=== PATIENT | female | born 2000 | race African-American/Black ===

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

== ENCOUNTER 2019-09-18 07:25 | Emergency (ER) | payer OTHER ==
[2019-09-18 07:35] VITALS: TEMP 98.1
[2019-09-18] MEDS ORDERED: AZITHROMYCIN 500 MG TAB PO STA (08:07)
[2019-09-18] MEDS ORDERED: cefTRIAXone 250 MG VIAL IM STA (08:07)
[2019-09-18 09:08] LABS: Appearance,Urine Clear (Clear); Bilirubin,Urine Negative (Negative); Blood,Urine Large (Negative); Color,Urine Yellow; Glucose,Urine (UA) Negative (Negative); Ketones,Urine Negative (Negative); Leukocyte Esterase,Urine Small (Negative); Mucus,Urine Rare /hpf; Nitrite,Urine Negative (Negative); PH, Urine 5.5 (5.0-8.0); Protein,Urine Negative (Negative); RBC,Urine >182 /hpf (0-5); Specific Gravity,Urine 1.012 (1.001-1.035); Squamous Epithelial Cell,Urine 2 /hpf (0-4); Urobilinogen,Urine <2.0 mg/dL (<2.0); WBC,Urine 17 /hpf (0-5)
--- NOTE | 2019-09-18 09:46 | ED ---
Female Urogenital HPI - General Chief complaint: Urogenital Stated complaint: STD check Time Seen by Provider: 09/18/19 07:35 Source: patient Mode of arrival: ambulatory Limitations: no limitations - History of Present Illness Initial comments: The patient is a 19-year-old female with no past history who presents to the emergency department with concern for sexually transmitted infection. She states that her boyfriend was just informed by his ex-girlfriend that she tested positive for chlamydia. Patient is presenting for treatment. She denies any symptoms. Denies any abnormal vaginal discharge. Does admit to vaginal bleeding as she is on her menstrual cycle. States that this is normal time for her menstrual cycle. No concern for disease. Denies dysuria, hematuria or difficulty voiding. Does admit to frequent urinary tract infections. Denies diarrhea, constipation, melanotic stools or hematochezia. No fevers or chills. Denies nausea or vomiting. There are no alleviating, precipitating or modifying factors Last Menstrual Period: 09/18/19 - Related Data Home Medications Medication Instructions Recorded Confirmed Czd-[id number]-Tqnjb Acid 1 cap PO DAILY 07/25/18 07/25/18 [-U Capsule (formulary)] Allergies Allergy/AdvReac Type Severity Reaction Status Date / Time No Known Allergies Allergy Verified 09/18/19 07:33 Review of Systems ROS Statement: Those systems with pertinent positive or pertinent negative responses have been documented in the HPI. ROS Other: All systems not noted in ROS Statement are negative. Past Medical History Past Medical History: No Reported History Additional Past Medical History / Comment(s): urinary tract infections History of Any Multi-Drug Resistant Organisms: None Reported Past Surgical History: No Surgical Hx Reported Past Anesthesia/Blood Transfusion Reactions: No Reported Reaction Past Psychological History: No Psychological Hx Reported Smoking Status: Current every day smoker Past Alcohol Use History: None Reported Past Drug Use History: Marijuana - Past Family History Mother History Unknown: Yes Family Medical History: Cancer, Hypertension Additional Family Medical History / Comment(s): cervical cancer Father Family Medical History: Hypertension General Exam Limitations: no limitations General appearance: alert, in no apparent distress Head exam: Present: atraumatic, normocephalic, normal inspection Eye exam: Present: normal appearance. Absent: scleral icterus, conjunctival injection, periorbital swelling ENT exam: Present: normal exam, mucous membranes moist Neck exam: Present: normal inspection. Absent: tenderness, meningismus, ly mphadenopathy Respiratory exam: Present: normal lung sounds bilaterally. Absent: respiratory distress, wheezes, rales, rhonchi, stridor Cardiovascular Exam: Present: regular rate, normal rhythm, normal heart sounds. Absent: systolic murmur, diastolic murmur, rubs, gallop, clicks GI/Abdominal exam: Present: soft, normal bowel sounds. Absent: distended, tenderness, guarding, rebound, rigid Extremities exam: Present: normal inspection, full ROM, normal capillary refill. Absent: tenderness, pedal edema, joint swelling, calf tenderness Back exam: Present: normal inspection Neurological exam: Present: alert, oriented X3, CN II-XII intact Psychiatric exam: Present: normal affect, normal mood Skin exam: Present: warm, dry, intact, normal color. Absent: rash Course Vital Signs 09/18/19 09/18/19 07:30 09:53 Temperature 98.1 F Pulse Rate 62 70 Respiratory 20 16 Rate Blood Pressure 135/92 120/74 O2 Sat by Pulse 100 99 Oximetry Medical Decision Making - Medical Decision Making Upon arrival patient was placed into room 20. A thorough history and physical exam was performed. UA was performed which demonstrates large blood, small leukocyte Estrace, greater than 182 red blood cells, 17 white blood cells. HCG is not detected. I did offer a pelvic exam but the patient is just requesting treatment. She is given a gram of azithromycin and 250 mg IM of Rocephin. I informed patient that she should follow up with the health clinic for further testing such transmitted infections such as HIV and hepatitis. Urine will be sent for culture. Return to the emergency room for any new or worsening symptoms. The patient was discharged home in stable condition - Lab Data Lab Results 09/18/19 09/18/19 Range/Units 08:00 08:00 Urine Color Yellow Urine Appearance Clear (Clear) Urine pH 5.5 (5.0-8.0) Ur Specific [place] 1.012 (1.001-1.035) Urine Protein Negative (Negative) Urine Glucose (UA) Negative (Negative) Urine Ketones Negative (Negative) Urine Blood Large H (Negative) Urine Nitrite Negative (Negative) Urine Bilirubin Negative (Negative) Urine Urobilinogen <2.0 (<2.0) mg/dL Ur Leukocyte Esterase Small H (Negative) Urine RBC >182 H (0-5) /hpf Urine WBC 17 H (0-5) /hpf Ur Squamous Epith Cells 2 (0-4) /hpf Urine Mucus Rare H (None) /hpf Urine HCG, Qual Not Detected (Not Detectd) Disposition Clinical Impression: Unprotected sex, Abnormal urinalysis Disposition: HOME SELF-CARE Condition: Stable Instructions (If sedation given, give patient instructions): Safe Sex (ED) Additional Instructions: Please follow-up with your primary care doctor in 2-4 days. You should go to the health clinic and get tested for HIV and hepatitis. Return to the emergency department for any new or worsening symptoms Is patient prescribed a controlled substance at d/c from ED?: No Referrals: None,Stated [Primary Care Provider] - 1-2 days Yuli Avery MD [STAFF PHYSICIAN] - 1-2 days Time of Disposition: 09:45
[2019-09-18 09:54] VITALS: BP 120/74; PULSE 70; RESP 16
== END 2019-09-18 09:53 | disposition home or self-care (01) ==
LOC: EC 07:25
DX: R82.90 Unspecified abnormal findings in urine (principal); F17.200 Nicotine dependence, unspecified, uncomplicated
CPT/HCPCS: 81001; 81025; 87086; 99283; 96372; J0696

== ENCOUNTER 2022-05-13 15:29 | Emergency (ER) | payer OTHER ==
[2022-05-13] MEDS ORDERED: SODIUM CHLORIDE 0.9% 1,000 ML IV STA (16:20)
--- NOTE | 2022-05-13 16:26 | ED ---
General Adult HPI - General Chief complaint: Vaginal Bleeding Stated complaint: Vaginal bleeding-14 weeks preg Time Seen by Provider: 05/13/22 16:04 Source: patient, RN notes reviewed Mode of arrival: wheelchair Limitations: no limitations - History of Present Illness Initial comments: 21-year-old female, , presents to the emergency Department with complaints of vaginal bleeding, onset less than one hour prior to arrival. Patient states she is 13 weeks as confirmed by ultrasound. First day of LMP unknown. Reports OB care at [facility] in [place]. States she was hospitalized last week for hypokalemia secondary to hyperemesis gravidarum. States she has been prescribed vitamin B6 and Zofran and has been tolerating her potassium supp lement without difficulty. Does complain of abdominal cramping discomfort, however declines anything for pain at this time. Reports nausea is minimal. Does report history of previous miscarriage and states this is similar in presentation. Denies fever, chills, headache, chest pain, shortness of breath, dysuria, hematuria, abdominal trauma, falls, or injury. - Related Data Home Medications Medication Instructions Recorded Confirmed Ycw-Tkth-[id number] Acid 1 cap PO DAILY 07/25/18 07/25/18 [-U Capsule (formulary)] Allergies Allergy/AdvReac Type Severity Reaction Status Date / Time No Known Allergies Allergy Verified 05/13/22 15:34 Review of Systems ROS Statement: Those systems with pertinent positive or pertinent negative responses have been documented in the HPI. ROS Other: All systems not noted in ROS Statement are negative. Past Medical History Past Medical History: No Reported History Additional Past Medical History / Comment(s): urinary tract infections History of Any Multi-Drug Resistant Organisms: None Reported Past Surgical History: No Surgical Hx Reported Past Anesthesia/Blood Transfusion Reactions: No Reported Reaction Past Psychological History: No Psychological Hx Reported Past Alcohol Use History: None Reported Past Drug Use History: Marijuana - Past Family History Mother History Unknown: Yes Family Medical History: Cancer, Hypertension Additional Family Medical History / Comment(s): cervical cancer Father Family Medical History: Hypertension General Exam Limitations: no limitations General appearance: alert, in no apparent distress, anxious, other (Well- developed, well-nourished female in no acute distress. Initial temperature 98.1, pulse 59, respirations 16, blood pressure 135/94, pulse ox 94% on room air.) ENT exam: Present: normal exam, normal oropharynx, mucous membranes moist Neck exam: Present: normal inspection, full ROM. Absent: tenderness, meningismus, lymphadenopathy Respiratory exam: Present: normal lung sounds bilaterally. Absent: respiratory distress, wheezes, rales, rhonchi, stridor, chest wall tenderness Cardiovascular Exam: Present: regular rate, normal rhythm, normal heart sounds. Absent: systolic murmur, diastolic murmur, rubs, gallop, clicks GI/Abdominal exam: Present: soft, normal bowel sounds. Absent: distended, tende rness, guarding, rebound, rigid Speculum exam: Present: vaginal bleeding (moderate amount of thin, dark red bleeding; no clots or tissue present; Os appears closed) Back exam: Absent: CVA tenderness (R), CVA tenderness (L) Neurological exam: Present: alert, oriented X3, CN II-XII intact, normal gait Psychiatric exam: Present: anxious Skin exam: Present: warm, dry, intact, normal color. Absent: rash Course Vital Signs 05/13/22 05/13/22 05/13/22 15:31 16:56 18:00 Temperature 98.1 F Pulse Rate 59 L 79 78 Respiratory 16 20 18 Rate Blood Pressure 135/94 115/80 109/77 O2 Sat by Pulse 94 L 99 99 Oximetry 05/13/22 19:20 Temperature 98.2 F Pulse Rate 75 Respiratory 20 Rate Blood Pressure 114/79 O2 Sat by Pulse 100 Oximetry - Reevaluation(s) Reevaluation #1: 05/13/22 16:29 Patient is now asking for pain medication as her cramping is worsening and is feeling back and pelvic discomfort. IV access obtained at this time. Pain medication and IV fluids will be ordered. Does report that she was recently treated for UTI and was told to DC the antibiotic as recheck showed sufficient clearing of infection. 05/13/22 19:00 Results reviewed with patient. She verbalizes understanding. Given RX for repeat bhCG and verbalizes understanding of instructions. Medical Decision Making - Medical Decision Making This is a 21-year-old female, , 11 weeks 5 days as confirmed by u ltrasound, who presents to the emergency department for evaluation of vaginal bleeding. Recent history of hypokalemia secondary to hyperemesis gravidarum. Upon exam, patient is well-appearing and in no acute distress. Physical exam findings are unremarkable with the exception of moderate amount of dark red vaginal bleeding. Laboratory studies were obtained. Na 134, K+3.4, bhCG 67,888. B-positive blood type therefore Rhogam not required. Ultrasound was obtained showing a viable single intrauterine fetus and subchorionic bleed. Patient was given a liter of IV fluids, morphine for cramping discomfort, Zofran for mild nausea, and oral potassium which she tolerated well. Patient reports f eeling improved. She will be discharged home with a prescription to repeat her beta hCG level in 48 hours. Instructed to call her FULFILLMENT COORDINATOR on Sunday to schedule follow-up appointment. Strict return parameters were discussed in detail. Patient verbalizes understanding and agrees with this plan. Attending: Wan. - Lab Data Result diagrams: 05/13/22 16:34 05/13/22 16:34 Lab Results 05/13/22 05/13/22 05/13/22 Range/Units 16:34 16:34 16:34 WBC 6.8 (3.8-10.6) k/uL RBC 4.38 (3.80-5.40) m/uL Hgb 13.3 (11.4-16.0) gm/dL Hct 38.1 (34.0-46.0) % MCV 86.9 (80.0-100.0) fL MCH 30.3 (25.0-35.0) pg MCHC 34.9 (31.0-37.0) g/dL RDW 13.4 (11.5-15.5) % Plt Count 206 (150-450) k/uL MPV 9.2 Neutrophils % 69 % Lymphocytes % 23 % Monocytes % 5 % Eosinophils % 1 % Basophils % 0 % Neutrophils # 4.7 (1.3-7.7) k/uL Lymphocytes # 1.6 (1.0-4.8) k/uL Monocytes # 0.4 (0-1.0) k/uL Eosinophils # 0.1 (0-0.7) k/uL Basophils # 0.0 (0-0.2) k/uL PT 11.5 (9.0-12.0) sec INR 1.1 (<1.2) Sodium 134 L (137-145) mmol/L Potassium 3.4 L (3.5-5.1) mmol/L Chloride 101 (98-107) mmol/L Carbon Dioxide 21 L (22-30) mmol/L Anion Gap 12 mmol/L BUN 9 (7-17) mg/dL Creatinine 0.57 (0.52-1.04) mg/dL Est GFR (CKD-EPI)AfAm >90 (>60 ml/min/1.73 sqM) Est GFR (CKD-EPI)NonAf >90 (>60 ml/min/1.73 sqM) Glucose 100 H (74-99) mg/dL Calcium 9.6 (8.4-10.2) mg/dL Total Bilirubin 0.4 (0.2-1.3) mg/dL AST 20 (14-36) U/L ALT 11 (4-34) U/L Alkaline Phosphatase 40 (38-126) U/L Total Protein 7.4 (6.3-8.2) g/dL Albumin 4.5 (3.5-5.0) g/dL HCG, Quant mIU/mL Urine Color Urine Appearance (Clear) Urine pH (5.0-8.0) Ur Specific [place] (1.001-1.035) Urine Protein (Negative) Urine Glucose (UA) (Negative) Urine Ketones (Negative) Urine Blood (Negative) Urine Nitrite (Negative) Urine Bilirubin (Negative) Urine Urobilinogen (<2.0) mg/dL Ur Leukocyte Esterase (Negative) Urine RBC (0-5) /hpf Ur Squamous Epith Cells (0-4) /hpf Urine Mucus (None) /hpf Blood Type Blood Type Recheck Bld Type Recheck Status 05/13/22 05/13/22 05/13/22 Range/Units 16:34 16:34 17:48 WBC (3.8-10.6) k/uL RBC (3.80-5.40) m/uL Hgb (11.4-16.0) gm/dL Hct (34.0-46.0) % MCV (80.0-100.0) fL MCH (25.0-35.0) pg MCHC (31.0-37.0) g/dL RDW (11.5-15.5) % Plt Count (150-450) k/uL MPV Neutrophils % % Lymphocytes % % Monocytes % % Eosinophils % % Basophils % % Neutrophils # (1.3-7.7) k/uL Lymphocytes # (1.0-4.8) k/uL Monocytes # (0-1.0) k/uL Eosinophils # (0-0.7) k/uL Basophils # (0-0.2) k/uL PT (9.0-12.0) sec INR (<1.2) Sodium (137-145) mmol/L Potassium (3.5-5.1) mmol/L Chloride (98-107) mmol/L Carbon Dioxide (22-30) mmol/L Anion Gap mmol/L BUN (7-17) mg/dL Creatinine (0.52-1.04) mg/dL Est GFR (CKD-EPI)AfAm (>60 ml/min/1.73 sqM) Est GFR (CKD-EPI)NonAf (>60 ml/min/1.73 sqM) Glucose (74-99) mg/dL Calcium (8.4-10.2) mg/dL Total Bilirubin (0.2-1.3) mg/dL AST (14-36) U/L ALT (4-34) U/L Alkaline Phosphatase (38-126) U/L Total Protein (6.3-8.2) g/dL Albumin (3.5-5.0) g/dL HCG, Quant 13028.8 mIU/mL Urine Color Red Urine Appearance Clear (Clear) Urine pH 6.0 (5.0-8.0) Ur Specific [place] 1.027 (1.001-1.035) Urine Protein 2+ H (Negative) Urine Glucose (UA) Negative (Negative) Urine Ketones Trace H (Negative) Urine Blood Large H (Negative) Urine Nitrite Negative (Negative) Urine Bilirubin Negative (Negative) Urine Urobilinogen <2.0 (<2.0) mg/dL Ur Leukocyte Esterase Small H (Negative) Urine RBC >182 H (0-5) /hpf Ur Squamous Epith Cells 2 (0-4) /hpf Urine Mucus Few H (None) /hpf Blood Type B Positive Blood Type Recheck B Pos Bld Type Recheck Status No - Radiology Data Radiology results: report reviewed, image reviewed OB ultrasound was obtained. Report was reviewed in its entirety. Impression per Dr. Lopez is #1. Single viable intrauterine . #2. Subchorionic bleed inferior to the gestational sac. 5.6 x 3.9 x 5.3 cm in size. Disposition Clinical Impression: Threatened in first trimester, Hypokalemia Disposition: HOME SELF-CARE Condition: Stable Instructions (If sedation given, give patient instructions): Threatened Miscarriage (ED), Hypokalemia (ED) Additional Instructions: Given the presence of vaginal bleeding, you should avoid vigorous or strenuous activity. No sexual intercourse. May take Tylenol if needed for cramping discomfort. Hydration is important; drink water and consider an electrolyte solution such as Pedialyte or Gatorade. Have repeat blood work (bHCG) done in 48 hours. Call your OB on Sunday to schedule a follow-up appointment. Return to the emergency department with any new, worsening, or concerning symptoms. Is patient prescribed a controlled substance at d/c from ED?: No Referrals: None,Stated [Primary Care Provider] - 1-2 days Time of Disposition: 19:11
[2022-05-13] MEDS ORDERED: ONDANSETRON 4 MG/2 ML VIAL IVP STA (16:39)
[2022-05-13] MEDS ORDERED: MORPHINE SULFATE 2 MG/ML SYRINGE IVP ONE (16:39)
[2022-05-13 16:46] LABS: INR 1.1 (<1.2); Prothrombin Time 11.5 sec (9.0-12.0)
[2022-05-13 16:48] LABS: ALT 11 U/L (4-34); AST 20 U/L (14-36); African American GFR (CKD) >90 (>60 ml/min/1.73 sqM); Albumin 4.5 g/dL (3.5-5.0); Alkaline Phosphatase 40 U/L (38-126); Anion Gap 12 mmol/L; Blood Urea Nitrogen 9 mg/dL (7-17); Calcium 9.6 mg/dL (8.4-10.2); Carbon Dioxide 21 mmol/L (22-30); Chloride 101 mmol/L (98-107); Glucose 100 mg/dL (74-99); Non-African American GFR(CKD) >90 (>60 ml/min/1.73 sqM); Potassium 3.4 mmol/L (3.5-5.1); Sodium 134 mmol/L (137-145); Total Bilirubin 0.4 mg/dL (0.2-1.3); Total Protein 7.4 g/dL (6.3-8.2)
[2022-05-13 17:16] LABS: Basophils % (A) 0 %; Eosinophils # (A) 0.1 k/uL (0-0.7); Eosinophils % (A) 1 %; HCT 38.1 % (34.0-46.0); HGB 13.3 gm/dL (11.4-16.0); Lymphocytes # (A) 1.6 k/uL (1.0-4.8); Lymphocytes % (A) 23 %; MCH 30.3 pg (25.0-35.0); MCHC 34.9 g/dL (31.0-37.0); MCV 86.9 fL (80.0-100.0); Mean Platelet Volume 9.2; Monocytes # (A) 0.4 k/uL (0-1.0); Monocytes % (A) 5 %; Neutrophils # (A) 4.7 k/uL (1.3-7.7); Neutrophils % (A) 69 %; Platelet Count 206 k/uL (150-450); RBC 4.38 m/uL (3.80-5.40); RDW 13.4 % (11.5-15.5); WBC 6.8 k/uL (3.8-10.6)
[2022-05-13] MEDS ORDERED: POTASSIUM CHLORIDE ER 20 MEQ TAB.ER PO STA (17:36)
--- NOTE | 2022-05-13 18:04 | US ---
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 EXAM PERFORMED: Transabdominal (TA) EXAM MEASUREMENTS: GESTATIONAL AGE / DATING Physician Established: Not yet established Dates by LMP: LMP unknown Dates by First Scan: No previous this is first scan Dates by Current Scan for: (11 weeks/5 days) EDC: 11/27/2022 MATERNAL ANATOMY Uterus: 12.0 x 8.0 x 8.4cm Right Ovary: 3.4 x 2.1 x 2.7cm Left Ovary: not seen Post CDS / Adnexa: wnl Presence of free fluid: no Presence of corpus luteal cyst: right ovary: 2.4 x 1.5 x 2.2cm Presence of subchorionic bleed: 5.6 x 3.9 x 5.3cm - inferior to gestational sac GESTATION / SURVEY CRL: 4.9cm (11 weeks/5 days) Yolk Sac (normal less than 6mm): 4.8mm Heart Rate: 156 bpm Rhythm: Normal IUP: Viable IUP Date of LMP: Unknown Beta HcG (if available): Not available at time of exam IMPRESSION: 1. Single viable intrauterine . 2. Subchorionic bleed inferior to the gestational sac. 5.6 x 3.9 x 5.3 cm in size.
[2022-05-13 18:07] LABS: Appearance,Urine Clear (Clear); Bilirubin,Urine Negative (Negative); Blood,Urine Large (Negative); Color,Urine Red; Glucose,Urine (UA) Negative (Negative); Ketones,Urine Trace (Negative); Leukocyte Esterase,Urine Small (Negative); Mucus,Urine Few /hpf; Nitrite,Urine Negative (Negative); Protein,Urine 2+ (Negative); RBC,Urine >182 /hpf (0-5); Specific Gravity,Urine 1.027 (1.001-1.035); Squamous Epithelial Cell,Urine 2 /hpf (0-4); Urobilinogen,Urine <2.0 mg/dL (<2.0)
[2022-05-13 19:21] VITALS: BP 114/79; PULSE 75; RESP 20; TEMP 98.2
== END 2022-05-13 19:31 | disposition home or self-care (01) ==
LOC: EC 15:29
DX: O20.0 Threatened abortion (principal); O99.281 Endocrine, nutritional and metabolic diseases complicating pregnancy, first trimester; E87.6 Hypokalemia; Z79.899 Other long term (current) drug therapy
CPT/HCPCS: 36415; 86900; 86901; 80053; 85025; 85610; 81001; 84702; 76801; 99284; 96374; 96375; 96361; J2405; J2270

== ENCOUNTER 2022-08-15 16:50 | Outpatient (CLI) | payer OTHER ==
[2022-08-15] MEDS ORDERED: LACTATED RINGERS 1,000 ML IV SCH (17:45)
[2022-08-15 18:06] LABS: Amorphous Sediment,Urine Occasional /hpf; Appearance,Urine Cloudy (Clear); Bacteria,Urine Occasional /hpf; Bilirubin,Urine Negative (Negative); Blood,Urine Negative (Negative); Color,Urine Light Yellow; Glucose,Urine (UA) Negative (Negative); Ketones,Urine Negative (Negative); Leukocyte Esterase,Urine Small (Negative); Mucus,Urine Occasional /hpf; Nitrite,Urine Negative (Negative); PH, Urine 7.5 (5.0-8.0); Protein,Urine Negative (Negative); RBC,Urine <1 /hpf (0-5); Specific Gravity,Urine 1.013 (1.001-1.035); Squamous Epithelial Cell,Urine 5 /hpf (0-4); Urobilinogen,Urine <2.0 mg/dL (<2.0); WBC,Urine 2 /hpf (0-5)
[2022-08-15 18:13] VITALS: BP 113/59; TEMP 97.4
[2022-08-15 18:14] LABS: Amphetamine Screen,Urine Not Detected (NotDetected); Barbiturate Screen,Urine Not Detected (NotDetected); Benzodiazepines Screen,Urine Not Detected (NotDetected); Cocaine Screen,Urine Not Detected (NotDetected); Methadone Screen, Urine Not Detected (NotDetected); Opiate Screen,Urine Not Detected (NotDetected); Oxycodone Screen, Urine Not Detected (NotDetected); Phencyclidine Screen,Urine Not Detected (NotDetected); Tricyclic Antidepressant,Urine Not Detected (NotDetected); Urn Cannabinoid Scrn Detected (NotDetected)
[2022-08-15] MEDS ORDERED: ACETAMINOPHEN TAB 500 MG TAB PO STA (18:18)
[2022-08-15 18:23] LABS: Basophils % (A) 0 %; Eosinophils # (A) 0.1 k/uL (0-0.7); Eosinophils % (A) 1 %; HCT 34.8 % (34.0-46.0); HGB 11.5 gm/dL (11.4-16.0); Lymphocytes # (A) 1.9 k/uL (1.0-4.8); Lymphocytes % (A) 17 %; MCH 29.6 pg (25.0-35.0); MCHC 33.1 g/dL (31.0-37.0); MCV 89.4 fL (80.0-100.0); Monocytes # (A) 0.9 k/uL (0-1.0); Monocytes % (A) 7 %; Neutrophils # (A) 8.5 k/uL (1.3-7.7); Neutrophils % (A) 73 %; Platelet Count 192 k/uL (150-450); RDW 13.1 % (11.5-15.5); WBC 11.6 k/uL (3.8-10.6)
[2022-08-15 18:31] LABS: ALT 12 U/L (4-34); AST 20 U/L (14-36); African American GFR (CKD) >90 (>60 ml/min/1.73 sqM); Blood Urea Nitrogen 6 mg/dL (7-17); LDH 402 U/L (313-618); Non-African American GFR(CKD) >90 (>60 ml/min/1.73 sqM); Uric Acid 3.6 mg/dL (3.7-7.4)
[2022-08-15 18:38] LABS: Creatinine,Urine Random 71.4 mg/dL; Protein/Creatinine Ratio,Urine 0.098
--- NOTE | 2022-08-15 18:43 | US ---
EXAMINATION TYPE: US OB limited DATE OF EXAM: 08/15/2022 COMPARISON: NONE CLINICAL HISTORY: Placenta. abdominal pain today EXAM PERFORMED: Transabdominal (TA) GESTATIONAL AGE / DATING Physician Established: (25 weeks/4 days) EDC: 11/24/22 Dates by Current Scan: (25 weeks/3 days) EDC: 11/25/22 SURVEY PLACENTA: Fundal PREVIA: No Previa Ultrasound evidence of abruption? No [place]: 16.1 cm Normal Ultrasound evidence of premature rupture of membranes? No CERVICAL LENGTH (transabdominal: norm > 3.0cm): 3.7 cm (Supplemental transvaginal imaging performed to verify cervical length.) Ultrasound evidence of cervical incompetence? No (Tech?if abnormal transabdominally?image transvaginally to substantiate abnormality.) PRESENTATION: Vertex LIE: Longitudinal HEART RATE: 154 bpm RHYTHM: Normal IMPRESSION: Amniotic fluid is normal. Placenta appears normal. No evidence of placenta previa or plac enta abruption. Cervix is closed. No complicating process seen. Biparietal diameter is 6.5 cm equal to 26 weeks and 2 days. The abdominal circumference is 21.4 cm eq ual to 25 weeks and 6 days.
[2022-08-15 19:14] VITALS: PULSE 109; RESP 16
[2022-08-15 19:29] LABS: INR 0.9 (<1.2); Partial Thromboplastin Time 25.2 sec (22.0-30.0); Prothrombin Time 9.4 sec (9.0-12.0)
--- NOTE | 2022-08-18 08:43 | P.MSEPDOC ---
Presenting Problems - Arrival Data Date of Arrival on Unit: 08/15/22 Time of Arrival on Unit: 16:50 Mode of Transport: Wheelchair - Complaint OB-Reason for Admission/Chief Complaint: Possible Onset of Labor Comment: pt to triage crying and pushing, cervix checked and found to be 1cm dilated and not srini Medical History - Information : 5 Para: 3 Term: 1 : 2 Abortions: Spontaneous or Elective: 1 Number of Living Children: 3 - Gestational Age Gestational Age by WYATT (wks/days): 25 Weeks and 4 Days - History Complications: Hx. Substance Abuse, Other Comment: "placenta detached" per pt, now resolved. +THC Review of Systems - Review of Systems Constitutional: No problems Breast: No problems ENT: No problems Cardiovascular: No problems Respiratory: No problems Gastrointestinal: No problems Genitourinary: No problems Musculoskeletal: No problems Neurological: No problems Skin: No problems Vital Signs - Temperature Temperature: 97.4 F Temperature Source: Temporal Artery Scan - Pulse Right Supine Brachial Pulse Rate: 109 Pulse Assessment Method: Automatic Cuff - Respirations Respiratory Rate: 16 Oxygen Delivery Method: Room Air - Blood Pressure Right Arm Supine Blood Pressure: 113/59 Blood Pressure Mean: 77 Blood Pressure Source: Automatic Cuff Medical Screen Scoring - Cervical Exam Dilation (cm): 1 Membranes: Intact - Assessment - Baby A Heart Rate - NICHD Category: Category I (Normal) Physician Notification - Physician Notified Physician Notified Date: 08/15/22 Physician Notified Time: 18:50 Physician: Karolina Hardy Order Received: Yes (d/c home) - Notification Comment Comment: preeclamptic labs, IV, Ultrasound, UA UDS and call with results Maternal Triage Index - Maternal Triage Index Presenting for scheduled procedure w/no complaint: No - Stat/Priority 1 Stat Priority 1: Yes Provider Notified: Silvia De La Torre Provider Notified Time: 16:50 Criteria Met for Priority 1: Active bearing down efforts - Prompt/Priority 3 Prompt Priority 3: Yes Criteria Met for Priority 3: 25 2/7, to triage crying and pushing, pt fould to be 1cm and not srini Disposition - Disposition OB Disposition: Discharge to home Discharge Date: 08/15/22 Discharge Time: 18:55 I agree with the RN Medical Screening Exam: Yes Case reviewed; plan agreed upon as documented in EMR&OBIX.: Yes Diagnosis: FALSE LABOR BEFORE 37 COMPLETED WEEKS OF GEST, SECOND TRI
== END 2022-08-15 18:55 | disposition home or self-care (01) ==
LOC: FBPOP 16:50
PROVIDERS: ATTEND Obstetrics & Gynecology
DX: O47.02 False labor before 37 completed weeks of gestation, second trimester (principal); Z3A.25 25 weeks gestation of pregnancy; F17.200 Nicotine dependence, unspecified, uncomplicated
CPT/HCPCS: 59025; 96360; 36415; 82570; 84156; 82565; 83615; 84450; 84460; 84520; 84550; 85025; 85384; 85610; 85730; 81001; 80306; 76815; G0463; 99214